=== PATIENT | female | born 1955 | race Caucasian/White ===

== ENCOUNTER 2021-04-24 12:16 | Emergency (ER) | payer MEDICARE, SELFPAY ==
--- NOTE | ~2021-04-24 | XR_ITS ---
EXAMINATION: XR CHEST CLINICAL INFORMATION: Cough, asthma COMPARISON: Chest radiographs 08/24/2009 TECHNIQUE: 2 views of the chest were obtained. FINDINGS: Patient is slightly rotated to the right. There is subtle opacity lateral apical right upper lobe. This is superimposed upon some chronic coarsening of the bronchovascular markings bilateral medial apices similar to 2010. The remainder the lungs are clear and there is no lobar or segmental airspace consolidation or effusion. The heart is normal in size and the hilar and mediastinal contours are normal. There are degenerative changes thoracic spine. XR/XR chest 2V IMPRESSION: 1. Subtle airspace opacity peripherally right upper lobe. No effusion. Recommend follow-up post therapy to ensure clearing. 2. Old coarsening bronchovascular markings bilateral medial apices, similar to 2010.
[2021-04-24 13:07] VITALS: BP 133/64; PULSE 75; RESP 18; TEMP 36.1; O2SAT 95; BMI 34.5
[2021-04-24 14:04] LABS: Influenza A PCR NEGATIVE (Negative); Influenza B PCR NEGATIVE (Negative); Resp Syncy Virus RNA Qual PCR NEGATIVE (Negative); SARS COV2 PCR INHOUSE NEGATIVE (Negative)
--- NOTE | 2021-04-24 14:42 | ED.ASTHMA ---
HPI - Asthma General Chief Complaint: Upper Respiratory Symptoms Stated Complaint: asthma Time Seen by Provider: 04/24/21 14:26 Source: patient Mode of arrival: ambulatory Limitations: no limitations History of Present Illness HPI Narrative: 66 y/o female with history of asthma presents to the ER with cough and shortness of breath that started last night. She reports using her prescribed inhalers with brief relief. She has been coughing without any phlegm production. She has some chest discomfort when coughing only. None at rest. She also reports headache, body aches, and generally feeling unwell. She also reports increase in her allergy symptoms with both of her eyes being red and watery. She denies any fever or chills. She denies any dyspnea. No leg swelling. She is fully vaccinated against COVID-19. She has no known sick contacts. No known asthma trigger. MD complaint: shortness of breath and other (Cough) Onset (ago): day(s) Severity: moderate and similar to prior Associated symptoms: dry cough Treatments Prior to Arrival: inhaled bronchodilator and inhaled steroid Related Data Current Asthma Therapy: inhaled bronchodilator and inhaled steroid Previous Rx's Medication Instructions Recorded albuterol sulfate 90 mcg/actuation 2 puff INHALATION QID PRN #6.7 g 04/24/21 aerosol inhaler benzonatate 100 mg capsule 100 mg PO TID PRN #14 cap 04/24/21 fluticasone propionate 110 1 puff INHALATION BID #12 g 04/24/21 mcg/actuation HFA aerosol inhaler (Flovent HFA) ipratropium bromide 17 1 puff INHALATION QID #12.9 g 04/24/21 mcg/actuation HFA aerosol inhaler (Atrovent HFA) levofloxacin 500 mg tablet 500 mg PO DAILY #7 tab 04/24/21 prednisone 20 mg tablet 40 mg PO DAILY #10 tab 04/24/21 Allergies Allergy/AdvReac Type Severity Reaction Status Date / Time Unable to Assess Allergy Unverified 04/24/21 14:26 Review of Systems Review of Systems: Constitutional: No Fever, No Chills ENT/Mouth: No sore throat, No Rhinorrhea, No Swallowing Difficulty Eyes: No Eye Pain, No Swelling, + Redness Cardiovascular: + Chest Pain, + SOB, No Orthopnea, No Edema Respiratory: + Cough, No Sputum, + Wheezing, No dyspnea Gastrointestinal: No Nausea, No Vomiting, No Diarrhea, No abdominal Pain Musculoskeletal: No joint pain, No Myalgias Skin: No Skin Lesions, No rash Neuro: No Weakness, No Numbness, No Dizziness, No Headache Heme/Lymph: No Bruising, No Lymphadenopathy PMFSH Social History Social History Advance Directives: No Advance Directives Information Provided: No Physical Exam Vital Signs: Vital Signs: Last Vital Signs Temp 97.3 F 04/24/21 16:16 Pulse 91 04/24/21 16:16 Resp 18 04/24/21 16:16 BP 156/74 H 04/24/21 16:16 Pulse Ox 98 04/24/21 16:16 Body Mass Index 34.5 Appearance: Alert. Oriented X3. No acute distress. Eyes: Pupils equal, round and reactive to light. Bilateral conjunctival and scleral injection. No discharge. ENT: Pharynx normal. Neck: Normal inspection. Neck supple. CVS: Normal heart rate and rhythm. Pulses normal. Mild anterior chest wall tenderness. Respiratory: No respiratory distress. Breath sounds diminished throughout. No wheezing or rhonchi. Abdomen: Soft and nontender. +BS x4 Skin: Skin warm and dry. Normal skin color. Normal skin turgor. No rashes. Extremities: No lower extremity edema. No calf tenderness. Neuro: Oriented X 3. Grossly normal, nonfocal. Course Course Course Narrative: 66-year-old female with a history of asthma presenting to the ER with cough and shortness of breath that started last night. Also has an increase in her allergy symptoms and appears to have conjunctivitis. She is negative for COVID, flu, RSV. Chest x-ray is pending. Given her decreased breath sounds will give a bronchodilator and reassess. She is not hypoxic with saturations 95% on room air and speaking complete sentences. She is nontoxic appearing. Anticipate discharge home. Reevaluation(s) Reevaluation #1: Chest XR showing a right upper lobe opacity, will treat for community-acquired pneumonia. Reevaluation #2: Improved aeration after albuterol treatment. Patient is feeling much better. Given her antibiotic allergies will treat with p.o. Levaquin. Will also add p.r.n. albuterol inhaler which she does not have a home. Will refill her home Flovent and Atrovent. She is stable for discharge home with plan to follow up with her primary care doctor. Patient agreeable with plan. MDM - Asthma Lab Data Labs: Lab Results 04/24/21 Range/Units 13:10 Influenza Type A (PCR) NEGATIVE (Negative) Influenza Type B (PCR) NEGATIVE (Negative) RSV RNA Qual (PCR) NEGATIVE (Negative) SARS-CoV-2 RNA (RT-PCR) NEGATIVE (Negative) Critical Care Time Critical Care Time Critical Care Time: No Discharge Plan Discharge Clinical Impression: Pneumonia Qualifiers: Pneumonia type: due to unspecified organism Laterality: right Lung location: upper lobe of lung Qualified Code(s): J18.9 - Pneumonia, unspecified organism Patient Disposition: Home, Self-Care Instructions: Pneumonia (ED) Additional Instructions: Your chest x-ray showed a opacity in the right upper lobe consistent with possible pneumonia. Take the prescribed antibiotics as directed for this. Complete the entire course. Continue to use your inhalers as directed. Take the prescribed steroids to help with inflammation in your lungs. Recommend [id number] cold and flu medication and cough suppressants as needed for your symptoms. Rest and stay hydrated. Use the prescribed inhalers as directed. A new inhaler was sent to your pharmacy called albuterol, this is use as needed for shortness of breath and wheezing. Follow-up with your doctor this week. If you develop new or worsening symptoms call 911 or come back to the ER for further evaluation. Prescriptions: New prednisone 20 mg tablet 40 mg PO DAILY Qty: 10 RF: 0 benzonatate 100 mg capsule 100 mg PO TID PRN (Reason: cough) Qty: 14 RF: 0 levofloxacin 500 mg tablet 500 mg PO DAILY Qty: 7 RF: 0 Flovent HFA 110 mcg/actuation HFA aerosol inhaler 1 puff inhalation BID Qty: 12 RF: 0 Atrovent HFA 17 mcg/actuation HFA aerosol inhaler 1 puff inhalation QID Qty: 12.9 RF: 0 albuterol sulfate 90 mcg/actuation HFA aerosol inhaler 2 puff inhalation QID PRN (Reason: shortness of breath or wheezing) Qty: 6.7 RF: 0
[2021-04-24] MEDS: Albuterol Sulfate (0.083%) 2.5 MG/3 ML VIAL.NEB 5 MG INHALE (15:16)
[2021-04-24 15:17] VITALS: PULSE 86; O2SAT 96
[2021-04-24 16:16] VITALS: BP 156/74; PULSE 91; RESP 18; TEMP 36.3; O2SAT 98
== END 2021-04-24 16:31 | disposition home or self-care (01) ==
PROVIDERS: Emergency Provider Emergency Medicine; PCP Internal Medicine
DX: J18.9 Pneumonia, unspecified organism (principal); J45.909 Unspecified asthma, uncomplicated; R05.9 Cough, unspecified; Z20.822 Contact with and (suspected) exposure to COVID-19; Z79.899 Other long term (current) drug therapy
CPT/HCPCS: 0241U; 36415; 71046; 94640; 99284

== ENCOUNTER 2023-07-22 18:48 | Emergency (ER) | payer MEDICARE, SELFPAY ==
--- NOTE | ~2023-07-22 | XR_ITS ---
EXAMINATION: XR CHEST CLINICAL INFORMATION: Cough COMPARISON: April 1621 TECHNIQUE: 2 views of the chest were obtained. FINDINGS: There is stable right upper lobe opacity projecting over the intersection of clavicle and fourth rib on the right. Lungs are well-expanded without other abnormal findings on cardiomediastinal silhouette is normal. XR/XR chest 2V IMPRESSION: Chronic changes in the right apex.
[2023-07-22 19:05] VITALS: BP 132/78; PULSE 76; RESP 18; TEMP 36.6; O2SAT 94; BMI 34.9
--- NOTE | 2023-07-22 19:06 | ED.GENADULT ---
HPI - General Adult General Stated complaint: cough, shortness of breath Related Data Previous Rx's Medication Instructions Recorded albuterol sulfate 90 mcg/actuation 2 puff inhalation QID PRN 04/24/21 aerosol inhaler shortness of breath or wheezing #6.7 grams benzonatate 100 mg capsule 100 mg PO TID PRN cough #14 caps 04/24/21 fluticasone propionate 110 1 puff inhalation BID #12 grams 04/24/21 mcg/actuation HFA aerosol inhaler (Flovent HFA) ipratropium bromide 17 1 puff inhalation QID #12.9 grams 04/24/21 mcg/actuation HFA aerosol inhaler (Atrovent HFA) levofloxacin 500 mg tablet 500 mg PO DAILY #7 tabs 04/24/21 prednisone 20 mg tablet 40 mg (2 x 20 mg) PO DAILY #10 tabs 04/24/21 Allergies Allergy/AdvReac Type Severity Reaction Status Date / Time Unable to Assess Allergy Unverified 04/24/21 14:26 Course Course Course Narrative: Patient complains that today she started having a cough and when the coughing is bad she become short of breath from so much coughing, she has no chest pain She also developed a runny nose and some body aches but no abdominal pain no chest pain no dysuria no nausea no diarrhea This is rapid medical done in triage pending full evaluation and dispo by ER provider Discharge Plan Discharge Prescriptions: No Action prednisone 20 mg tablet 40 mg PO DAILY Qty: 10 0RF benzonatate 100 mg capsule 100 mg PO TID PRN (Reason: cough) Qty: 14 0RF levofloxacin 500 mg tablet 500 mg PO DAILY Qty: 7 0RF Flovent HFA 110 mcg/actuation HFA aerosol inhaler 1 puff inhalation BID Qty: 12 0RF Rx Instructions: administer with spacer Atrovent HFA 17 mcg/actuation HFA aerosol inhaler 1 puff inhalation QID Qty: 12.9 0RF albuterol sulfate 90 mcg/actuation HFA aerosol inhaler 2 puff inhalation QID PRN (Reason: shortness of breath or wheezing) Qty: 6.7 0RF
[2023-07-22 20:34] LABS: COVID-19 Test Negative (Negative); IDNOW Serial# 08D9AD1C
[2023-07-22 20:35] LABS: IDNOW Serial# 152EDE1D; Influenza A Positive (Negative); Influenza B2 Negative (Negative)
[2023-07-22 22:00] VITALS: BP 139/68; PULSE 79; RESP 18; TEMP 36.9; O2SAT 92
--- NOTE | 2023-07-22 22:29 | PC.NURSE ---
Pt left after reassessment, did not notify this RN, notified front desk team member. This RN, during reassessment, did encourage pt to stay despite the long wait, pt was initially agreeable.
== END 2023-07-22 22:31 | disposition left against medical advice (07) ==
LOC: HO.ED 22:18
PROVIDERS: Physician Assistant Medical; Emergency Provider Emergency Medicine
DX: J10.1 Influenza due to other identified influenza virus with other respiratory manifestations (principal); R05.9 Cough, unspecified; R06.02 Shortness of breath; Z11.52 Encounter for screening for COVID-19; Z79.899 Other long term (current) drug therapy
CPT/HCPCS: 71046; 87502; 87635; 99281; 99283

== ENCOUNTER 2023-11-20 10:28 | Outpatient (REF) | payer MEDICARE, SELFPAY | END 2023-11-20 10:29 | disposition home or self-care (01) | LOC: HO.SH 10:28 | PROVIDERS: Visit Provider Student in an Organized Health Care Education/Training Program | DX: Z01.118 Encounter for examination of ears and hearing with other abnormal findings (principal); H90.42 Sensorineural hearing loss, unilateral, left ear, with unrestricted hearing on the contralateral side | CPT/HCPCS: 92557; 92567 ==

== ENCOUNTER 2024-06-02 20:18 | Emergency (ER) | payer MEDICARE, SELFPAY ==
--- NOTE | 2024-06-02 | ECG_ITS ---
Test Reason : FALL Blood Pressure : / mmHG Vent. Rate : 070 BPM Atrial Rate : 070 BPM P-R Int : 148 ms QRS Dur : 070 ms QT Int : 394 ms P-R-T Axes : 006 010 015 degrees QTc Int : 425 ms Normal sinus rhythm Nonspecific ST and T wave abnormality Abnormal ECG No previous ECGs available Referred By: Generic ED Physician Electronically Signed By:Checo Gardiner
--- NOTE | ~2024-06-02 | CT_ITS ---
EXAMINATION: CT HEAD WITHOUT CONTRAST CT CERVICAL SPINE WITHOUT CONTRAST CLINICAL INFORMATION: Fall. Pain. COMPARISON: None available. TECHNIQUE: Contiguous axial imaging was performed through the head and cervical spine without intravenous administration of contrast. Sagittal and coronal reformatted images also obtained. This CT examination was performed using dose optimization techniques as appropriate, variously including the following: *Automated exposure control *Adjustment of mA and/or kV according to patient size (this includes techniques or standardized protocols for targeted exams where dose is matched to indication/reason for exam; i.e. extremities or head) *Use of iterative reconstruction technique DLP: 669+380 mGy-cm FINDINGS: The lateral, third and fourth ventricles are normally outlined. The cortical sulci and basal cisterns are normally outlined as well. There is mild bilateral periventricular and central white matter diminished attenuation. There is no acute territorial defect, hemorrhage or midline shift. The extra-axial spaces are unremarkable. Calvarium/scalp: Intact. Left temporomandibular degenerative change. Maxillofacial sinuses and mastoids: Clear as visualized. Cervical spine: The alignment is normal. The there is mild diffuse cervical disc degenerative change with endplate change and minimal osteophyte formation associated with mild diffuse facet osteoarthritic hypertrophic change with mild multilevel neuroforaminal narrowing. No fracture seen. The soft tissues are unremarkable. The visualized upper lung valle are clear. CT/CT cervical spine wo IV con IMPRESSION: 1. No acute intracranial process seen. 2. There is no acute cervical spine fracture or malalignment. There are degenerative disc changes and facet joint arthropathy as described above. Electronically signed by: Keyur Galicia MD 06/03/2024 12:12 AM [facility]
--- NOTE | ~2024-06-02 | CT_ITS ---
EXAMINATION: CT HEAD WITHOUT CONTRAST CT CERVICAL SPINE WITHOUT CONTRAST CLINICAL INFORMATION: Fall. Pain. COMPARISON: None available. TECHNIQUE: Contiguous axial imaging was performed through the head and cervical spine without intravenous administration of contrast. Sagittal and coronal reformatted images also obtained. This CT examination was performed using dose optimization techniques as appropriate, variously including the following: *Automated exposure control *Adjustment of mA and/or kV according to patient size (this includes techniques or standardized protocols for targeted exams where dose is matched to indication/reason for exam; i.e. extremities or head) *Use of iterative reconstruction technique DLP: 669+380 mGy-cm FINDINGS: The lateral, third and fourth ventricles are normally outlined. The cortical sulci and basal cisterns are normally outlined as well. There is mild bilateral periventricular and central white matter diminished attenuation. There is no acute territorial defect, hemorrhage or midline shift. The extra-axial spaces are unremarkable. Calvarium/scalp: Intact. Left temporomandibular degenerative change. Maxillofacial sinuses and mastoids: Clear as visualized. Cervical spine: The alignment is normal. The there is mild diffuse cervical disc degenerative change with endplate change and minimal osteophyte formation associated with mild diffuse facet osteoarthritic hypertrophic change with mild multilevel neuroforaminal narrowing. No fracture seen. The soft tissues are unremarkable. The visualized upper lung valle are clear. CT/CT head/brain wo IV con IMPRESSION: 1. No acute intracranial process seen. 2. There is no acute cervical spine fracture or malalignment. There are degenerative disc changes and facet joint arthropathy as described above. Electronically signed by: Keyur Galicia MD 06/03/2024 12:12 AM [facility]
--- NOTE | ~2024-06-02 | XR_ITS ---
EXAMINATION: SINGLE VIEW CHEST, PELVIS AND LEFT HIP CLINICAL INFORMATION: Fall with left hip pain COMPARISON: Chest radiograph 07/22/2023 TECHNIQUE: Single AP view chest Single view pelvis with 2 additional views left hip FINDINGS: Chest: Biapical pleural-parenchymal scarring present, right greater than left. Mild increase in reticular interstitial markings are unchanged. No new consolidations or effusions. Old healed left rib fractures are again seen. Suture anchors present in the right humerus. Degenerative changes and scoliosis in the spine. Mild increased elevation of the right hemidiaphragm. Pelvis and left hip: There is a fracture of the inferior pubic ramus on the left. There is a comminuted fracture involving the acetabulum. No definite hip fracture is seen. XR/XR chest 1V IMPRESSION: 1. No acute intrathoracic disease. 2. Comminuted left acetabular fracture and inferior pubic ramus fracture. Electronically signed by: Michael Trimble MD 06/02/2024 10:30 PM [facility]ITT
--- NOTE | ~2024-06-02 | CT_ITS ---
EXAMINATION: CT PELVIS WITHOUT CONTRAST CLINICAL INFORMATION: Fall. Pain. COMPARISON: None available. TECHNIQUE: Helical scanning was performed with submillimeter collimation through the pelvis. Sagittal and coronal multiplanar 2-D reconstructions were obtained. This CT examination was performed using dose optimization techniques as appropriate, variously including the following: *Automated exposure control *Adjustment of mA and/or kV according to patient size (this includes techniques or standardized protocols for targeted exams where dose is matched to indication/reason for exam; i.e. extremities or head) *Use of iterative reconstruction technique DLP: 401.10 mGy-cm FINDINGS: PELVIS: There is no pelvic mass. The urinary bladder is unremarkable. The visualized bowel is unremarkable. There is linear hyperdense structures along the left pelvic sidewall adjacent to left acetabular fractures. OSSEOUS STRUCTURES: The bony structures are osteopenic. There is a comminuted and displaced fracture extending through the left acetabulum and superiorly to the anterior left iliac bone and medially through the medial superior pubic symphysis. There is also a fracture through the inferior pubic ramus. There is mild associated protrusion of the left femoral head superiorly medially. There is mild right hip degenerative change. There is mild lower lumbar disc degenerative and facet degenerative change. CT/CT bony pelvis IMPRESSION: Comminuted and displaced fracture extending through the left acetabulum and superiorly to the anterior left iliac bone and medially through the medial superior pubic symphysis. There is mild associated protrusion of the left femoral head superiorly medially. There is also a fracture through the inferior pubic ramus. Linear hyperdense structures along the left pelvic sidewall adjacent to left acetabular fractures consistent with hemorrhage. Electronically signed by: Keyur Galicia MD 06/02/2024 11:33 PM [facility] [place]
--- NOTE | ~2024-06-02 | XR_ITS ---
EXAMINATION: SINGLE VIEW CHEST, PELVIS AND LEFT HIP CLINICAL INFORMATION: Fall with left hip pain COMPARISON: Chest radiograph 07/22/2023 TECHNIQUE: Single AP view chest Single view pelvis with 2 additional views left hip FINDINGS: Chest: Biapical pleural-parenchymal scarring present, right greater than left. Mild increase in reticular interstitial markings are unchanged. No new consolidations or effusions. Old healed left rib fractures are again seen. Suture anchors present in the right humerus. Degenerative changes and scoliosis in the spine. Mild increased elevation of the right hemidiaphragm. Pelvis and left hip: There is a fracture of the inferior pubic ramus on the left. There is a comminuted fracture involving the acetabulum. No definite hip fracture is seen. XR/XR hip LT w PEL1V IMPRESSION: 1. No acute intrathoracic disease. 2. Comminuted left acetabular fracture and inferior pubic ramus fracture. Electronically signed by: Michael Trimble MD 06/02/2024 10:30 PM [facility]
[2024-06-02 20:20] VITALS: BP 111/90; BP 146/92; PULSE 72; PULSE 74; RESP 16; TEMP 36.6; O2SAT 96; O2SAT 97; BMI 34.0
--- NOTE | 2024-06-02 20:46 | ED.FALL ---
HPI - Fall General Chief Complaint: Fall Stated Complaint: mechanical fall, rotation/shortening of l leg Time Seen by Provider: 06/02/24 20:33 Source: patient and EMS Mode of arrival: EMS Limitations: no limitations History of Present Illness ED Provider: DR. Lord HPI Narrative: A 69-year-old female came in by EMS for evaluation after had a mechanical fall, patient was getting out of the shower when she slipped on some object on the floor and fell landing on her left side do not remember if she hit her head remained on the floor for 6 hours because she could not get up secondary to severe pain in the left hip area, patient got home 6 hours later and called EMS to bring her to the hospital for further evaluation. Patient only complaint is left hip pain. Related Data Previous Rx's ?Medication ?Instructions ?Recorded albuterol sulfate 90 mcg/actuation 2 puff inhalation QID PRN 04/24/21 aerosol inhaler shortness of breath or wheezing #6.7 grams benzonatate 100 mg capsule 100 mg PO TID PRN cough #14 caps 04/24/21 fluticasone propionate 110 1 puff inhalation BID #12 grams 04/24/21 mcg/actuation HFA aerosol inhaler (Flovent HFA) ipratropium bromide 17 1 puff inhalation QID #12.9 grams 04/24/21 mcg/actuation HFA aerosol inhaler (Atrovent HFA) levofloxacin 500 mg tablet 500 mg PO DAILY #7 tabs 04/24/21 prednisone 20 mg tablet 40 mg (2 x 20 mg) PO DAILY #10 tabs 04/24/21 Allergies Allergy/AdvReac Type Severity Reaction Status Date / Time Penicillins Allergy Runny Nose Verified 06/02/24 20:28 Review of Systems Review of Systems: All other systems are reviewed and are negative Constitutional: Reports as per HPI and Reports no additional constitutional complaints Eyes: Reports as per HPI and Reports no additional eye complaints Reports system reviewed and no additional complaints, except as documented Cardiovascular: Reports as per HPI and Reports no additional cardiovascular complaints Respiratory: Reports as per HPI and Reports no additional respiratory complaints Gastrointestinal: Reports as per HPI and Reports no additional gastrointestinal complaints Genitourinary: Reports no additional female genitourinary complaints Musculoskeletal: Reports no additional musculoskeletal complaints Skin/Breast: Reports system reviewed and no additional complaints, except as docu Psychiatric: Reports no additional psychiatric complaints Endocrine: Reports no additional endocrine complaints Hematologic/Lymphatic: Reports no additional hematologic/lymphatic complaints Allergic/Immunologic: Reports no additional allergic/immunologic complaints Reports system reviewed and no additional complaints, except as documented and Reports Abnormal speech present [facility] Social History Social History Smoked in Last 30 Days: No Use of substances other than those prescribed or required for medical reasons: No Advance Directives: No Advance Directives Information Provided: Yes Do you have a plan to hurt others: No Plan Physical Exam Vital Signs: Vital Signs: Last Vital Signs Temp 98.1 F 06/02/24 22:59 Pulse 74 06/02/24 22:59 Resp 16 06/02/24 22:59 BP 122/63 06/02/24 22:59 Pulse Ox 95 06/02/24 22:59 O2 Del Method Room Air 06/02/24 22:59 BMI result Body Mass Index 34.0 Vital signs have been reviewed and appear to be correct. Blood pressure elevated. Heart rate normal. Respiratory rate normal. Temperature normal. Oxygen saturation normal. Appearance: Alert. Oriented X3. No acute distress. Head: Normal external exam. Normocephalic. Atraumatic. No Springer signs noted. No raccoon eyes noted Eyes: PERRLA. EOMI. Conjunctiva and sclera normal. Eyelids normal. ENT: TM's Normal. Pharynx normal. Uvula midline. Moist mucous membranes. No trismus noted. No drooling noted. No muffled voice noted. Neck: Normal inspection. Neck supple. FROM. No adenopathy. Thyroid Normal. No meningeal signs. No neck mass noted. CVS: Normal heart rate and rhythm. Heart sound normal. No murmurs noted. Pulses normal throughout. Respiratory: No respiratory distress. Painless inspiration. Breath sounds normal. No wheezes/rales/rhonchi noted. Chest nontender. No accessory muscle usage noted or decreased air movement noted. Abdomen: Soft and nontender. Bowel sounds normal in all 4 quadrants. No distention noted. No organomegaly noted. No visible injury noted. Back: No CVA tenderness. Full range of motion noted. Skin: Skin warm and dry. Normal skin color. Normal skin turgor. No rashes/lesions/lacerations noted. Extremities: LLE: Left hip tenderness, lower extremity internal rotation shortening. Neurovascularly intact. Neuro: Oriented X 3. Cranial nerve exam: II-XII are grossly intact No motor deficit. No sensory deficit. Reflexes normal. Medical Decision Making Differential Diagnosis Differential Diagnoses: The differential diagnosis associated with the presentation includes (Intracranial bleed, cervical spine fracture, chest trauma, abdominal trauma, extremity trauma, pelvic fracture, electrolyte derangement, severe anemia.) Admission/Observation Consideration of admission/observation: Escalation of care including admission/observation considered Consult Healthcare Provider Management of the patient was discussed with: Deck Worker (LV Sheehan from [facility]) Lab Data MDM Lab Attestation statement: I reviewed the patient's lab results. 06/02/24 21:48 06/02/24 21:48 Labs: Lab Results 06/02/24 Range/Units 21:48 WBC 11.3 H (4.8-10.8) X10*3/uL RBC 4.90 (4.20-5.50) X10*6/uL Hgb 14.4 (12.0-16.0) g/dl Hct 43.6 (37.0-47.0) % MCV 89.0 (80.0-98.0) fL MCH 29.4 (27.0-33.0) pg MCHC 33.0 (31.0-35.0) g/dl RDW 14.3 (11.0-16.0) % Plt Count 223 (160-400) X10*3/uL MPV 10.1 (9.4-12.3) fL Immature Gran % (Auto) 0.4 (0.0-0.4) % Neut % (Auto) 80.1 H (45-73) % Lymph % (Auto) 11.3 L (20-40) % Blanco % (Auto) 7.3 (2-11) % Eos % (Auto) 0.6 (0-4) % Baso % (Auto) 0.3 (0-2) % Lymph # (Auto) 1.3 (1.2-4.9) X10*3/uL Blanco # (Auto) 0.8 (0.1-1.2) X10*3/uL Eos # (Auto) 0.1 (0.0-0.4) X10*3/uL Baso # (Auto) 0.0 (0.0-0.2) X10*3/uL Abs Immat Gran (auto) 0.04 H (0.00-0.03) X10*3/uL Absolute Neuts (auto) 9.1 H (2.0-8.3) x10*3/uL Absolute Nucleated RBC 0.000 (0.0-0.012) X10*3/uL Nucleated RBC % (auto) 0.0 (0.0-0.2) /100WBC Sodium 141 (135-145) mmol/L Potassium 4.4 (3.3-5.1) mmol/L Chloride 105 (96-108) mmol/L Carbon Dioxide 24 (22-29) mmol/L Anion Gap 16 (12-20) BUN 20 H (9-16) mg/dL Creatinine 0.81 (0.5-1.4) mg/dL Estim Creat Clear Calc 75.2 Estimated GFR > 60 Random Glucose 136 H (60-115) mg/dL Calcium 9.8 (8.4-10.2) mg/dL Total Bilirubin 0.6 (0.0-1.0) mg/dL AST 42 H (5-31) U/L ALT 39 H (0-31) U/L Alkaline Phosphatase 67 (39-117) U/L Total Creatine Kinase 464 H (26-140) U/L Troponin I High Sens < 2.7 (<3.5-17.0) ng/L Total Protein 7.6 (6.5-8.0) g/dL Albumin 4.4 (3.5-5.0) g/dL Independent Interpretation I performed an independent interpretation of an: Plain X-Ray (Pelvis: Left acetabular fracture.) and CT Scan (Head/C-spine/pelvis:Comminuted and displaced fracture extending through the left acetabulum and superiorly to the anterior left iliac bone and medially through the medial superior pubic symphysis. There is mild associated protrusion of the left femoral head superiorly medially. There is also a fr) Radiology Impression Discussion of test interpretation with radiology: I have reviewed the radiologist's reading. Discharge Plan Discharge Clinical Impression: Acetabulum fracture, left Patient Disposition: [facility] Transfer Details: To [facility] Emergency Department. Prescriptions: No Action prednisone 20 mg tablet 40 mg PO DAILY Qty: 10 0RF benzonatate 100 mg capsule 100 mg PO TID PRN (Reason: cough) Qty: 14 0RF levofloxacin 500 mg tablet 500 mg PO DAILY Qty: 7 0RF Flovent HFA 110 mcg/actuation HFA aerosol inhaler 1 puff inhalation BID Qty: 12 0RF Rx Instructions: administer with spacer Atrovent HFA 17 mcg/actuation HFA aerosol inhaler 1 puff inhalation QID Qty: 12.9 0RF albuterol sulfate 90 mcg/actuation HFA aerosol inhaler 2 puff inhalation QID PRN (Reason: shortness of breath or wheezing) Qty: 6.7 0RF Print Language: Swedish
--- NOTE | 2024-06-02 21:29 | PC.NURSE ---
2x attempt for labs on arrival by this RN. followed by 2x attempt by pct. pt currently in imaging.
[2024-06-02 21:53] LABS: Basophils Percent Auto 0.3 % (0-2); Eosinophils Absolute Auto 0.1 X10*3/uL (0.0-0.4); Eosinophils Percent Auto 0.6 % (0-4); Hematocrit 43.6 % (37.0-47.0); Hemoglobin 14.4 g/dl (12.0-16.0); Imm Gran Abs Auto 0.04 X10*3/uL (0.00-0.03); Imm Gran Pct Auto 0.4 % (0.0-0.4); Lymphocytes Absolute Auto 1.3 X10*3/uL (1.2-4.9); Lymphocytes Percent Auto 11.3 % (20-40); MANUAL DIFF FLAG NO; Mean Corpuscular Hemoglobin 29.4 pg (27.0-33.0); Mean Platelet Volume 10.1 fL (9.4-12.3); Monocytes Absolute Auto 0.8 X10*3/uL (0.1-1.2); Monocytes Percent Auto 7.3 % (2-11); Neutrophils Absolute Auto 9.1 x10*3/uL (2.0-8.3); Neutrophils Percent Auto 80.1 % (45-73); Platelet Count 223 X10*3/uL (160-400); Red Cell Distribution Width 14.3 % (11.0-16.0); White Blood Count 11.3 X10*3/uL (4.8-10.8)
[2024-06-02 22:08] LABS: Alanine Aminotransferase 39 U/L (0-31); Albumin Level 4.4 g/dL (3.5-5.0); Alkaline Phosphatase 67 U/L (39-117); Anion Gap 16 (12-20); Aspartate Amino Transferase 42 U/L (5-31); Bilirubin Total 0.6 mg/dL (0.0-1.0); Blood Urea Nitrogen 20 mg/dL (9-16); Calcium 9.8 mg/dL (8.4-10.2); Carbon Dioxide 24 mmol/L (22-29); Chloride 105 mmol/L (96-108); Creatinine Clr Calc Pharmacy 75.2; Estimated Glomerular Filt Rate > 60; Glucose Random 136 mg/dL (60-115); Potassium 4.4 mmol/L (3.3-5.1); Sodium 141 mmol/L (135-145); Total Protein 7.6 g/dL (6.5-8.0)
[2024-06-02 22:59] VITALS: BP 122/63; PULSE 74; RESP 16; TEMP 36.7; O2SAT 95
[2024-06-02 23:00] LABS: Troponin-I High Sensitivity < 2.7 ng/L (<3.5-17.0)
[2024-06-03] MEDS: Ketorolac Tromethamine 15 MG/ML VIAL IVPUSH (00:09)
[2024-06-03] MEDS: ondansetron HCL 4 MG/2 ML VIAL IVPUSH (01:24)
[2024-06-03] MEDS: Morphine Sulfate 4 MG/ML CARTRIDGE IVPUSH (01:25)
[2024-06-03 01:30] VITALS: BP 108/48; PULSE 74; RESP 18; O2SAT 92
[2024-06-03 02:01] VITALS: BP 108/48; PULSE 74; RESP 18; TEMP 36.7; O2SAT 92
== END 2024-06-03 01:40 | disposition short-term general hospital (02) ==
PROVIDERS: Emergency Provider Emergency Medicine
DX: S32.402A Unspecified fracture of left acetabulum, initial encounter for closed fracture (principal); R94.31 Abnormal electrocardiogram [ECG] [EKG]; R51.9 Headache, unspecified; M54.2 Cervicalgia; M25.552 Pain in left hip; R10.2 Pelvic and perineal pain; W18.2XXA Fall in (into) shower or empty bathtub, initial encounter; Y93.E1 Activity, personal bathing and showering; Y92.89 Other specified places as the place of occurrence of the external cause; Y99.8 Other external cause status; Z91.81 History of falling; Z79.899 Other long term (current) drug therapy
CPT/HCPCS: 36415; 70450; 71045; 72125; 72192; 73502; 80053; 82550; 84484; 85025; 93005; 96372; 96374; 96375; 99285; J1885; J2270; J2405

== ENCOUNTER → 2024-06-02 20:29 | Outpatient (BNV) | payer MEDICARE, SELFPAY | PROVIDERS: Emergency Provider Emergency Medicine; Visit Provider Internal Medicine Cardiovascular Disease | DX: R94.31 Abnormal electrocardiogram [ECG] [EKG] (principal) | CPT/HCPCS: 93010 ==